=== PATIENT | female | born 1960 | race Caucasian/White ===

== ENCOUNTER → 2016-10-07 | Outpatient (REF) | payer BC ==
[~2016-10-07] MED LIST: ASPI81TA85 PO; COUM1TAB17 PO; COUM2.5T11 PO; METO25TAB PO; PERC5TAB6 PO; TRAM50TA2 PO
[2016-10-07 13:06] LABS: INR 1.56
== END ==
LOC: M LAB REF 12:51
PROVIDERS: ATTEND Orthopaedic Surgery
DX: Z51.81 Encounter for therapeutic drug level monitoring (principal); Z79.01 Long term (current) use of anticoagulants

== ENCOUNTER → 2016-10-09 | Outpatient (REF) | payer BC ==
[2016-10-09 14:34] LABS: INR 1.76
== END ==
LOC: M SHH 14:01
PROVIDERS: ATTEND Nurse Practitioner Family
DX: Z79.899 Other long term (current) drug therapy (principal)

== ENCOUNTER → 2016-10-14 | Outpatient (REF) | payer BC ==
[2016-10-14 10:59] LABS: INR 1.23
== END ==
LOC: M LAB REF 10:27
PROVIDERS: ATTEND Nurse Practitioner Family
DX: Z51.81 Encounter for therapeutic drug level monitoring (principal); Z79.01 Long term (current) use of anticoagulants

== ENCOUNTER → 2016-10-17 | Outpatient (REF) | payer BC ==
[2016-10-17 14:18] LABS: INR 1.13
== END ==
LOC: M SHH 13:34
PROVIDERS: ATTEND Nurse Practitioner Family
DX: Z51.81 Encounter for therapeutic drug level monitoring (principal); Z79.01 Long term (current) use of anticoagulants

== ENCOUNTER → 2016-10-21 | Outpatient (REF) | payer BC ==
[2016-10-21 13:13] LABS: INR 1.49
== END ==
LOC: M SHH 11:45
PROVIDERS: ATTEND Nurse Practitioner Family
DX: Z51.81 Encounter for therapeutic drug level monitoring (principal); Z79.01 Long term (current) use of anticoagulants

== ENCOUNTER → 2016-10-24 | Outpatient (REF) | payer BC ==
[2016-10-24 10:14] LABS: INR 1.48
== END ==
LOC: M LAB REF 10:00
PROVIDERS: ATTEND Nurse Practitioner Family
DX: Z51.81 Encounter for therapeutic drug level monitoring (principal); Z79.01 Long term (current) use of anticoagulants

== ENCOUNTER → 2016-10-28 | Outpatient (REF) | payer BC ==
[2016-10-28 10:50] LABS: INR 2.22
== END ==
LOC: M SHH 10:24
PROVIDERS: ATTEND Nurse Practitioner Family
DX: Z51.81 Encounter for therapeutic drug level monitoring (principal); Z79.01 Long term (current) use of anticoagulants

== ENCOUNTER → 2016-10-31 | Outpatient (REF) | payer BC ==
[2016-10-31 11:30] LABS: INR 1.69
== END ==
LOC: M SHH 11:12
PROVIDERS: ATTEND Nurse Practitioner Family
DX: Z51.81 Encounter for therapeutic drug level monitoring (principal); Z79.01 Long term (current) use of anticoagulants

== ENCOUNTER → 2017-06-05 | Outpatient (CLI) | payer BC ==
[~2017-06-05] MED LIST changes: -COUM2.5T11 PO; +COUM2.5T17 PO; +METO25TA4 PO; -METO25TAB PO; +PERC5TAB12 PO; -PERC5TAB6 PO
[2017-06-05 13:50] LABS: ALBUMIN 3.8 GM/DL (3.2-5.2); ALBUMIN/GLOBULIN RATIO 1.15 (1.00-1.93); ALKALINE PHOSPHATASE 108 U/L (45-117); ALT/SGPT 20 U/L (12-78); ANION GAP 8 MEQ/L (8-16); AST/SGOT 19 U/L (15-37); BILIRUBIN,TOTAL 0.4 MG/DL (0.2-1.0); BLOOD UREA NITROGEN 11 MG/DL (7-18); CALCIUM LEVEL 8.7 MG/DL (8.5-10.1); CARBON DIOXIDE LEVEL 25 MEQ/L (21-32); CHLORIDE LEVEL 110 MEQ/L (98-107); CHOLESTEROL LEVEL 248 MG/DL (<200); GLOMERULAR FILTRATION RATE > 60.0 (>51); GLUCOSE, FASTING 85 MG/DL (70-105); POTASSIUM SERUM 4.8 MEQ/L (3.5-5.1); SODIUM LEVEL 143 MEQ/L (136-145); TOTAL PROTEIN 7.1 GM/DL (6.4-8.2); TRIGLYCERIDES LEVEL 132 MG/DL (<150)
== END ==
LOC: M WUC 09:10
PROVIDERS: ATTEND Internal Medicine Cardiovascular Disease
DX: E78.5 Hyperlipidemia, unspecified (principal); R06.02 Shortness of breath; R91.8 Other nonspecific abnormal finding of lung field

== ENCOUNTER → 2017-06-10 | Outpatient (CLI) | payer BC ==
[~2017-06-10] MED LIST changes: +ISOVUE-370 76% 100ML VIAL (Q9967) As Ordered ONE
--- NOTE | 2017-06-10 14:42 | REP ---
CT CHEST WITH IV CONTRAST: HISTORY: Shortness of breath. Lung nodule. COMPARISON: CT study 01/10/2016. CT CONTRAST DOSE: 75 mL of intravenous Isovue-370. CT FINDINGS: Spot Worker views are unremarkable. There is no evidence of pleural or pericardial effusion. No hilar or mediastinal mass or adenopathy is observed. There is an accessory splenule in the left upper quadrant. No adrenal lesion is seen. There is a small cortical cyst in the left kidney anteriorly, 1.8 cm. The visualized upper abdominal structures are otherwise unremarkable. Heart size is prominent. The thoracic aorta enhances homogeneously without evidence of dissection. The ascending aorta measures 4.5 cm in AP dimension at the level of the main pulmonary artery. There is no evidence of pulmonary embolus. There are a few mild emphysematous bullae in the right apex. No significant pulmonary nodule is seen on either side. IMPRESSION: 1. Mildly dilated ascending aorta. 2. Small left renal cyst. 3. Mild cardiomegaly. 4. No significant pulmonary nodule seen. Signed by Crhis Benavidez MD 06/10/2017 04:34 P
== END ==
LOC: M RAD 08:17
PROVIDERS: ATTEND Internal Medicine Cardiovascular Disease
DX: I51.7 Cardiomegaly (principal); N28.1 Cyst of kidney, acquired
CPT/HCPCS: 71260; Q9967

== ENCOUNTER 2018-03-19 05:33 | Emergency (ER) | payer OTHER, BC ==
[2018-03-19] MEDS: KETOROLAC 30 MG/ML VIAL (J1885) IV (06:15)
[2018-03-19] MEDS: ONDANSETRON 4MG/2ML VIAL (J2405) IV (06:15)
[2018-03-19 06:20] LABS: BASO % 0.4 % (0.0-1.0); EOS # 0.2 10^3/uL (0.0-0.50); EOS % 2.6 % (0.0-3.0); HEMATOCRIT 42.4 % (36.0-47.0); HEMOGLOBIN 13.9 g/dl (12.0-15.5); IMMATURE GRANULOCYTE % 0.3 % (0-3.0); LYMPH # 2.3 10^3/uL (1.5-4.5); MEAN CORPUSCULAR HEMOGLOBIN 30.5 pg (27.0-33.0); MEAN CORPUSCULAR HGB CONC 32.8 g/dl (32.0-36.5); MEAN CORPUSCULAR VOLUME 93.2 fl (80.0-96.0); MONO # 0.6 10^3/uL (0.0-0.8); MONO % 8.5 % (0.0-5.0); NEUTROPHILS # 3.7 10^3/uL (1.8-7.7); NEUTROPHILS % 54.2 % (36.0-66.0); PLATELET COUNT, AUTOMATED 192 10^3/uL (150-450); RED BLOOD COUNT 4.55 10^6/uL (4.00-5.40); RED CELL DISTRIBUTION WIDTH 13.2 % (11.5-14.5); WHITE BLOOD COUNT 6.8 10^3/uL (4.0-10.0)
[2018-03-19 06:37] LABS: ANION GAP 5 MEQ/L (8-16); BLOOD UREA NITROGEN 25 MG/DL (7-18); CALCIUM LEVEL 9.2 MG/DL (8.5-10.1); CARBON DIOXIDE LEVEL 29 MEQ/L (21-32); CHLORIDE LEVEL 110 MEQ/L (98-107); GLOMERULAR FILTRATION RATE 49.1 (>51); GLUCOSE, FASTING 130 MG/DL (70-100); POTASSIUM SERUM 4.5 MEQ/L (3.5-5.1); SODIUM LEVEL 144 MEQ/L (136-145)
[2018-03-19] MEDS: MORPHINE 4 MG/ML 1ML VIAL/SYRINGE (J2270) IV ×2 (06:51→07:42)
[2018-03-19] MEDS: NS 1,000 ML IV (06:51)
[2018-03-19] MEDS ORDERED: METOCLOPRAMIDE INJ 10MG/2ML VIAL (J2765) As Ordered (07:38)
[2018-03-19] MEDS: METOCLOPRAMIDE INJ 10MG/2ML VIAL (J2765) IV (07:49)
[2018-03-19 08:35] LABS: AMORPHOUS SEDIMENT RFX LARGE (NEGATIVE); KETONE, URINE AUTO RFX TRACE mg/dL (NEGATIVE); LEUKOCYTE ESTERASE UR AUTO RFX NEGATIVE (NEGATIVE); MUCUS, URINE RFX LARGE (NEGATIVE); NITRITE, URINE AUTO RFX NEGATIVE (NEGATIVE); RBC, URINE AUTO RFX TNTC /HPF (0-3); SPECIFIC GRAVITY UR AUTO RFX 1.028 (1.002-1.035); SQUAM EPITHELIAL CELL UR AURFX 13 /HPF (0-6); WBC, URINE AUTO RFX 7 /HPF (0-3)
[2018-03-19] MEDS: PERCOCET 5MG/325MG TAB PO (08:58)
== END 2018-03-19 09:02 | disposition home or self-care (01) ==
LOC: M ED 05:33
DX: N20.1 Calculus of ureter (principal); R00.1 Bradycardia, unspecified; Z86.79 Personal history of other diseases of the circulatory system
CPT/HCPCS: J2270

== ENCOUNTER 2018-07-01 08:24 | Day surgery (SDC) | payer OTHER ==
[~2018-07-01 08:24] MED LIST changes: +ACETAMINOPHEN 325 MG TAB PO; -ASPI81TA85 PO; -COUM1TAB17 PO; -COUM2.5T17 PO; -ISOVUE-370 76% 100ML VIAL (Q9967) As Ordered ONE; -METO25TA4 PO; -PERC5TAB12 PO; +PHENYLEPHRINE HCL 10 % OPHTH. SOL 5ML OD; -TRAM50TA2 PO
[2018-07-01] MEDS: PHENYLEPHRINE 2.5% OPHTH SOL 2ML OD (09:05)
[2018-07-01] MEDS: CYCLOPENTOLATE 2% OPHTH SOLN 2ML BTL OD (09:05)
[2018-07-01] MEDS: TROPICAMIDE 1% OPHTH SOLN 2ML OD (09:06)
[2018-07-01] MEDS: OFLOXACIN 0.3 % (OCUFLOX) OPTH SOL 5ML OD (09:06)
[2018-07-01] MEDS: LIDOCAINE 3.5 % 1ML OPHTH TOPICAL GEL OU (09:06)
[2018-07-01] MEDS ORDERED: fentaNYL 100 MCG/2 ML INJECTION (J3010) As Ordered (09:30)
[2018-07-01] MEDS ORDERED: MIDAZOLAM INJ 2 MG/2 ML VIAL (J2250) As Ordered (09:30)
[2018-07-01] MEDS: POVIDONE-IODINE 5% OPHTH PREP SOL 30ML As Ordered (09:51)
[2018-07-01] MEDS: HEALON DUET (HEALON 10MG/ML 0.55ML & HEALON ENDOCOAT 30MG/ML 0.85ML) As Ordered (09:55)
[2018-07-01] MEDS: LIDOCAINE 1% SDV 5 ML VIAL As Ordered (09:55)
[2018-07-01] MEDS: TRIAMCINOLONE PRES FR 40 MG/ML 1ML(TRIESENCE)(OR EYE ONLY)(J3300 PER 1MG) As Ordered (09:55)
[2018-07-01] MEDS: MOXIFLOXACIN IN BSS 0.25MG/0.25ML INTRACAMERAL INJ (OR EYE ONLY)(J2280) As Ordered ×2 (09:56)
[2018-07-01] MEDS: LIDOCAINE 2% W/EPIN INJ 20ML **PRES FREE XX (09:56)
[2018-07-01] MEDS: BSS with VANC/TOB/EPI for EYE CASES IR (09:56)
[2018-07-01] MEDS ORDERED: TRIMETHOBENZAMIDE 300 MG CAP PO (10:15)
[2018-07-01] MEDS: AcetaZOLAMIDE 500 MG ER CAP PO (10:30)
== END 2018-07-01 10:45 | disposition home or self-care (01) ==
LOC: M SDC 08:24
DX: H25.9 Unspecified age-related cataract (principal); I71.4 Abdominal aortic aneurysm, without rupture; Z79.82 Long term (current) use of aspirin; Z79.899 Other long term (current) drug therapy; R00.1 Bradycardia, unspecified; K21.9 Gastro-esophageal reflux disease without esophagitis; J45.909 Unspecified asthma, uncomplicated; F17.210 Nicotine dependence, cigarettes, uncomplicated
CPT/HCPCS: 66984

== ENCOUNTER → 2019-02-11 | Outpatient (CLI) | payer OTHER ==
[~2019-02-11] MED LIST changes: -ACETAMINOPHEN 325 MG TAB PO; +ASPI81TA26 PO; +ASPI81TA85 PO; +COUM1TAB17 PO; +COUM2.5T17 PO; +FLOM0.4C39 PO; +IRBE150T12 PO; +ISOVUE-370 76% 100ML VIAL (Q9967) As Ordered ONE; +METO25TA4 PO; +MIRA3350 PO; +PERC5TAB12 PO; -PHENYLEPHRINE HCL 10 % OPHTH. SOL 5ML OD; +RANI150T PO; +TRAM50TA2 PO; +TYLE650T35 PO; +ZOFR4TAB14 PO
--- NOTE | 2019-02-12 04:45 | REP ---
Clinical: Thoracic aortic aneurysm. Technique: Axial contrast enhanced images from the thoracic inlet to the upper abdomen with coronal and sagittal re-formations using 100 ml Isovue 370 intravenous contrast material. Comparison: 06/10/2017, 01/10/2016, 01/04/2015 . Findings: The ascending thoracic aorta measures up to approximately 4.5 cm maximal diameter at the level of the main pulmonary artery without evidence for dissection. Minimal atherosclerotic changes to the thoracic aorta and coronary arteries identified. No cardiomegaly or pericardial effusion. The pulmonary vasculature appears relatively normal. The bilateral lung ulrich demonstrate very minimal emphysematous changes. Stable chronic subtle 4 mm noncalcified nodule in the right lower lobe (image 52) is again appreciated. No consolidation. No further mass lesion. No pleural effusion or pneumothorax. Tracheobronchial tree is patent. No axillary, hilar, or mediastinal adenopathy. Surrounding musculoskeletal structures are intact. Limited upper abdomen demonstrates normal bilateral adrenal glands. Impression: 1. Ascending thoracic aortic aneurysm measuring 4.5 cm maximal diameter and remains stable. No dissection. 2. Stable 4 mm noncalcified nodule in the right lower lobe requires no further investigation. . Electronically Signed by Massimo Pettit MD 02/12/2019 04:37 A
== END ==
LOC: M RAD 09:21
PROVIDERS: ATTEND Internal Medicine Cardiovascular Disease
DX: I71.2 Thoracic aortic aneurysm, without rupture (principal); R91.1 Solitary pulmonary nodule
CPT/HCPCS: 71260; Q9967

== ENCOUNTER → 2019-12-30 | Outpatient (CLI) | payer OTHER ==
[~2019-12-30] MED LIST changes: -IRBE150T12 PO; +IRBE150T7 PO; -ISOVUE-370 76% 100ML VIAL (Q9967) As Ordered ONE
[2019-12-30 11:48] LABS: BASO % 0.3 % (0.0-1.0); EOS # 0.1 10^3/uL (0.0-0.5); EOS % 1.6 % (0.0-3.0); HEMATOCRIT 42.2 % (36.0-47.0); HEMOGLOBIN 13.7 g/dl (12.0-15.5); LYMPH # 1.8 10^3/uL (1.5-5.0); LYMPH % 28.7 % (24.0-44.0); MEAN CORPUSCULAR HEMOGLOBIN 31.5 pg (27.0-33.0); MEAN CORPUSCULAR HGB CONC 32.5 g/dl (32.0-36.5); MONO # 0.5 10^3/uL (0.0-0.8); MONO % 7.3 % (0.0-5.0); NEUTROPHILS # 3.9 10^3/uL (1.5-8.5); NEUTROPHILS % 61.5 % (36.0-66.0); PLATELET COUNT, AUTOMATED 195 10^3/uL (150-450); RED BLOOD COUNT 4.35 10^6/uL (4.00-5.40); WHITE BLOOD COUNT 6.3 10^3/uL (4.0-10.0)
[2019-12-30 12:06] LABS: BLOOD UREA NITROGEN 17 MG/DL (7-18); CALCIUM LEVEL 9.4 MG/DL (8.5-10.1); CARBON DIOXIDE LEVEL 29 MEQ/L (21-32); CHLORIDE LEVEL 107 MEQ/L (98-107); CREATININE FOR GFR 0.77 MG/DL (0.55-1.30); GLOMERULAR FILTRATION RATE > 60.0 (>51); GLUCOSE, FASTING 91 MG/DL (70-100); SODIUM LEVEL 138 MEQ/L (136-145)
--- NOTE | 2019-12-30 12:55 | REP ---
CT ABDOMEN AND PELVIS WITHOUT CONTRAST: CT abdomen and pelvis performed without oral or IV contrast. Sagittal and coronal reconstruction images are performed. Visualized lung bases demonstrate no infiltrate. The liver, spleen, adrenals, pancreas, and right kidney are unremarkable. There is a cyst of the upper left kidney approximately 1.6 cm in diameter. There is no renal, ureteral, or bladder calculus. There is no hydroureteronephrosis. There is atherosclerotic calcification of the abdominal aorta without aneurysm. There is no adenopathy. There is no free air or free fluid. There is no bowel wall thickening. There are scattered diverticula of the left and sigmoid colon with no evidence of acute diverticulitis. The appendix is normal. No pelvic mass is seen. Left hip prosthesis causes streak artifact limiting evaluation of pelvic structures. The urinary bladder is grossly unremarkable. IMPRESSION: No evidence of appendicitis. No renal, ureteral or bladder calculus identified and no evidence of hydroureteronephrosis. There is left colonic and sigmoid diverticulosis without evidence of acute diverticulitis. No free air of free fluid. Electronically Signed by Avelino Solo MD 12/30/2019 04:55 P
== END ==
LOC: M RAD 11:09
PROVIDERS: ATTEND Family Medicine
DX: K57.30 Diverticulosis of large intestine without perforation or abscess without bleeding (principal); R10.9 Unspecified abdominal pain; R35.0 Frequency of micturition

== ENCOUNTER → 2019-12-30 | Outpatient (REF) | payer OTHER ==
[2019-12-30 17:40] LABS: APPEARANCE, URINE CLEAR (CLEAR); BACTERIA, URINE AUTO 1+ (NEGATIVE); BILIRUBIN, URINE AUTO NEGATIVE (NEGATIVE); BLOOD, URINE BLOOD NEGATIVE (NEGATIVE); COLOR, URINE YELLOW (YELLOW); GLUCOSE, URINE (UA) AUTO NEGATIVE (NEGATIVE); KETONE, URINE AUTO NEGATIVE (NEGATIVE); LEUKOCYTE ESTERASE, URINE AUTO NEGATIVE (NEGATIVE); MUCUS, URINE SMALL (NEGATIVE); NITRITE, URINE AUTO NEGATIVE (NEGATIVE); PROTEIN, URINE AUTO NEGATIVE (NEGATIVE); RBC, URINE AUTO 0 /HPF (0-3); SPECIFIC GRAVITY URINE AUTO 1.005 (1.002-1.035); SQUAMOUS EPITHELIAL CELL UR AU 3 /HPF (0-6); UROBILINOGEN, URINE AUTO 0.2 mg/dL (0.0-2.0); WBC, URINE AUTO 1 /HPF (0-3)
== END ==
LOC: M SFHCPLAZ 16:45
PROVIDERS: ATTEND Family Medicine
DX: R10.9 Unspecified abdominal pain (principal); R35.0 Frequency of micturition

== ENCOUNTER 2020-10-03 11:35 | Emergency (ER) | payer OTHER ==
[~2020-10-03] VITALS: Ht 175.3 cm; Wt 95.7 kg
[~2020-10-03 11:35] MED LIST changes: +ACET650T61 PO; -ASPI81TA85 PO; +ASPI81TA86 PO; -TYLE650T35 PO
--- NOTE | 2020-10-03 12:09 | REP ---
INDICATION: CHEST PAIN COMPARISON: 09/23/2016 TECHNIQUE: Portable AP view of the chest FINDINGS: Cardiomegaly. The lung ulrich are clear without acute consolidation, effusion, or pneumothorax. Skeletal structures are intact. IMPRESSION: Cardiomegaly. No acute cardiopulmonary process appreciated. <Electronically signed by Massimo Pettit > 10/03/20 [id number]
[2020-10-03 12:15] LABS: BASO % 0.7 % (0.0-1.0); EOS # 0.1 10^3/uL (0.0-0.5); EOS % 2.4 % (0.0-3.0); HEMATOCRIT 41.4 % (36.0-47.0); LYMPH # 1.9 10^3/uL (1.5-5.0); LYMPH % 31.3 % (24.0-44.0); MEAN CORPUSCULAR HGB CONC 31.4 g/dl (32.0-36.5); MEAN CORPUSCULAR VOLUME 95.4 fl (80.0-96.0); MONO # 0.4 10^3/uL (0.0-0.8); MONO % 7.4 % (0.0-5.0); NEUTROPHILS # 3.4 10^3/uL (1.5-8.5); NEUTROPHILS % 57.7 % (36.0-66.0); PLATELET COUNT, AUTOMATED 209 10^3/uL (150-450); RED BLOOD COUNT 4.34 10^6/uL (4.00-5.40); WHITE BLOOD COUNT 5.9 10^3/uL (4.0-10.0)
[2020-10-03] MEDS ORDERED: ISOVUE-370 76% 100ML VIAL As Ordered ONE (12:20)
[2020-10-03 12:26] LABS: INR 0.85; PROTHROMBIN TIME 11.8 SECONDS (12.5-14.3)
[2020-10-03 12:41] LABS: ALT/SGPT 20 U/L (12-78); BILIRUBIN,DIRECT < 0.1 MG/DL (0.0-0.2); BILIRUBIN,TOTAL 0.3 MG/DL (0.2-1.0); LIPASE 94 U/L (73-393); TOTAL PROTEIN 7.2 GM/DL (6.4-8.2)
--- NOTE | 2020-10-03 12:45 | REP ---
INDICATION: severe mid sternal chest pain; hx of TAA COMPARISON: 02/11/2019 TECHNIQUE: Axial contrast enhanced images from the thoracic inlet to the upper abdomen using pulmonary embolus technique with multiplanar re-formations. 75 ml Isovue 370 intravenous contrast material administered without complication. This CT examination was performed using the following dose reduction techniques: Automated exposure control, adjustment of mA and/or kv according to the patient's size, and use of iterative reconstruction technique. FINDINGS: Satisfactory enhancement of the pulmonary vasculature is achieved and no filling defects are identified to suggest pulmonary embolus. Further evaluation of the mediastinum demonstrates stable mild aneurysmal dilatation to the ascending thoracic aorta measuring roughly 4.4 cm diameter. Heart and pericardium are grossly normal. The bilateral lung ulrich are well aerated and clear without consolidation, pleural effusion or pneumothorax. Tracheobronchial tree is patent. No nodule or mass lesion is identified. No adenopathy noted. Surrounding musculoskeletal structures intact IMPRESSION: No evidence for pulmonary embolus. No acute mediastinal or pleural parenchymal process. <Electronically signed by Massimo Pettit > 10/03/20 1938
--- NOTE | 2020-10-03 13:19 | ECGEPIP ---
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
[2020-10-03 13:55] VITALS: BP 160/81
== END 2020-10-03 14:06 | disposition home or self-care (01) ==
LOC: M ED 11:35
DX: R07.89 Other chest pain (principal); R06.02 Shortness of breath; I10 Essential (primary) hypertension; E78.5 Hyperlipidemia, unspecified; Z79.899 Other long term (current) drug therapy; F17.210 Nicotine dependence, cigarettes, uncomplicated
CPT/HCPCS: 36415; 71045; 71275; 80047; 80076; 83690; 85025; 85610; 93005; 93041; 94760; 99284; Q9967

== ENCOUNTER → 2021-07-26 | Outpatient (CLI) | payer OTHER ==
[2021-07-26 07:40] LABS: ALBUMIN 3.4 GM/DL (3.2-5.2); ALT/SGPT 15 U/L (12-78); BILIRUBIN,TOTAL 0.4 MG/DL (0.2-1.0); BLOOD UREA NITROGEN 14 MG/DL (7-18); CALCIUM LEVEL 9.2 MG/DL (8.8-10.2); CARBON DIOXIDE LEVEL 30 MEQ/L (21-32); CHLORIDE LEVEL 110 MEQ/L (98-107); CHOLESTEROL LEVEL 243 MG/DL (<200); CHOLESTEROL RISK RATIO 4.673 (<5); GLOMERULAR FILTRATION RATE > 60.0 (>45); GLUCOSE, FASTING 91 MG/DL (70-100); HDL CHOLESTEROL 52 MG/DL (>40); LDL CHOLESTEROL 170 MG/DL (<100); NON-HDL-C 191 MG/DL; POTASSIUM SERUM 4.1 MEQ/L (3.5-5.1); SODIUM LEVEL 142 MEQ/L (136-145); THYROID STIMULATING HORMONE 0.787 uIU/ML (0.358-3.740); TOTAL PROTEIN 6.7 GM/DL (6.4-8.2); TRIGLYCERIDES LEVEL 107 MG/DL (<150)
[2021-07-26 13:11] LABS: TOTAL 25(OH) VITAMIN D 33.1 NG/ML (30.0-100.0)
== END ==
LOC: M LAB 06:18
PROVIDERS: ATTEND Nurse Practitioner Adult Health
DX: E55.9 Vitamin D deficiency, unspecified (principal); I71.2 Thoracic aortic aneurysm, without rupture; Z13.29 Encounter for screening for other suspected endocrine disorder; I10 Essential (primary) hypertension

== ENCOUNTER → 2021-12-27 | Outpatient (CLI) | payer OTHER | LOC: M WHC 07:09 | PROVIDERS: ATTEND Nurse Practitioner Adult Health | DX: Z12.31 Encounter for screening mammogram for malignant neoplasm of breast (principal); Z78.0 Asymptomatic menopausal state; Z85.828 Personal history of other malignant neoplasm of skin ==

== ENCOUNTER 2022-08-31 19:36 | Emergency (ER) | payer OTHER ==
[~2022-08-31] VITALS: Ht 177.8 cm; Wt 95.0 kg
[2022-08-31 20:14] LABS: BASO % 0.5 % (0.0-1.0); EOS # 0.2 10^3/uL (0.0-0.5); HEMATOCRIT 40.9 % (36.0-47.0); HEMOGLOBIN 12.9 g/dl (12.0-15.5); LYMPH # 2.6 10^3/uL (1.5-5.0); MEAN CORPUSCULAR HEMOGLOBIN 30.5 pg (27.0-33.0); MEAN CORPUSCULAR HGB CONC 31.5 g/dl (32.0-36.5); MEAN CORPUSCULAR VOLUME 96.7 fl (80.0-96.0); MONO # 0.5 10^3/uL (0.0-0.8); MONO % 6.8 % (2.0-8.0); NEUTROPHILS # 4.1 10^3/uL (1.5-8.5); NEUTROPHILS % 55.3 % (36.0-66.0); PLATELET COUNT, AUTOMATED 220 10^3/uL (150-450); RED BLOOD COUNT 4.23 10^6/uL (4.00-5.40); WHITE BLOOD COUNT 7.5 10^3/uL (4.0-10.0)
[2022-08-31] MEDS ORDERED: NS 1,000 ML IV ONE (20:25)
[2022-08-31] MEDS ORDERED: KETOROLAC 30 MG/ML 1ML VIAL IV ONE ×2 (20:25→22:15)
[2022-08-31] MEDS ORDERED: ONDANSETRON 4MG 2ML VIAL IV ONE (20:40)
[2022-08-31 20:46] LABS: ALT/SGPT 23 U/L (7.0-40); BILIRUBIN,DIRECT < 0.1 MG/DL (<0.4); BILIRUBIN,TOTAL 0.3 MG/DL (0.3-1.2); BLOOD UREA NITROGEN 15 MG/DL (9-23); CALCIUM LEVEL 9.4 MG/DL (8.3-10.6); CARBON DIOXIDE LEVEL 27 MMOL/L (20-31); CHLORIDE LEVEL 106 MMOL/L (98-107); CREATININE FOR GFR 0.82 MG/DL (0.55-1.30); GLOMERULAR FILTRATION RATE > 60.0 (>45); GLUCOSE, FASTING 114 MG/DL (74-106); LIPASE 27 U/L (12-53); POTASSIUM SERUM 4.3 MMOL/L (3.5-5.1); SODIUM LEVEL 142 MMOL/L (136-145); TOTAL PROTEIN 6.9 G/DL (5.7-8.2)
[2022-08-31] MEDS ORDERED: TAMSULOSIN 0.4 MG CAP PO ONE (21:45)
[2022-08-31] MEDS ORDERED: FLOM0.4C39 PO (23:39)
[2022-08-31] MEDS ORDERED: HYDR-3713 PO (23:39)
[2022-08-31] MEDS ORDERED: NORCO 5/325MG TABLET (HOME DOSE PACK) PO ONE (23:40)
[2022-08-31] MEDS ORDERED: MORPHINE 4 MG/ML 1ML VIAL IV ONE (23:40)
[2022-08-31 23:58] VITALS: BP 120/84
== END 2022-09-01 | disposition home or self-care (01) ==
LOC: M ED 19:36
DX: N20.1 Calculus of ureter (principal); N13.30 Unspecified hydronephrosis; K57.30 Diverticulosis of large intestine without perforation or abscess without bleeding; I10 Essential (primary) hypertension; E78.5 Hyperlipidemia, unspecified; J45.909 Unspecified asthma, uncomplicated; Z79.899 Other long term (current) drug therapy
CPT/HCPCS: 74176; 80048; 80076; 81000; 81015; 83690; 85025; 87086; 96361; 96374; 96375; 96376; 99284; J1885; J2270

== ENCOUNTER 2022-10-17 12:04 | Emergency (ER) | payer OTHER ==
[~2022-10-17] VITALS: Ht 177.8 cm; Wt 95.4 kg
[~2022-10-17 12:04] MED LIST changes: +HYDR-3713 PO
[2022-10-17] MEDS ORDERED: PARO5TAB (12:17)
[2022-10-17 12:50] LABS: BASO % 0.5 % (0.0-1.0); EOS # 0.1 10^3/uL (0.0-0.5); EOS % 1.5 % (0.0-3.0); HEMATOCRIT 42.2 % (36.0-47.0); HEMOGLOBIN 13.5 g/dl (12.0-15.5); LYMPH # 1.9 10^3/uL (1.5-5.0); LYMPH % 28.7 % (24.0-44.0); MEAN CORPUSCULAR HEMOGLOBIN 30.9 pg (27.0-33.0); MEAN CORPUSCULAR VOLUME 96.6 fl (80.0-96.0); MONO # 0.5 10^3/uL (0.0-0.8); MONO % 7.1 % (2.0-8.0); NEUTROPHILS # 4.1 10^3/uL (1.5-8.5); NEUTROPHILS % 61.6 % (36.0-66.0); PLATELET COUNT, AUTOMATED 220 10^3/uL (150-450); RED BLOOD COUNT 4.37 10^6/uL (4.00-5.40); WHITE BLOOD COUNT 6.7 10^3/uL (4.0-10.0)
[2022-10-17 13:08] LABS: CK-MB VALUE MASS < 1.0 NG/ML (<3.6)
[2022-10-17 13:10] LABS: ALKALINE PHOSPHATASE 103 U/L (46-116); ALT/SGPT 16 U/L (7.0-40); AST/SGOT 13 U/L (<34); BILIRUBIN,DIRECT 0.1 MG/DL (<0.4); BILIRUBIN,TOTAL 0.3 MG/DL (0.3-1.2); BLOOD UREA NITROGEN 17 MG/DL (9-23); CALCIUM LEVEL 9.2 MG/DL (8.3-10.6); CARBON DIOXIDE LEVEL 27 MMOL/L (20-31); CHLORIDE LEVEL 106 MMOL/L (98-107); CREATININE FOR GFR 0.69 MG/DL (0.55-1.30); GLOMERULAR FILTRATION RATE > 60.0 (>45); GLUCOSE, FASTING 88 MG/DL (74-106); SODIUM LEVEL 141 MMOL/L (136-145); TOTAL PROTEIN 6.8 G/DL (5.7-8.2)
[2022-10-17 13:16] LABS: CPK CREATINE PHOSPHOKINASE 86 U/L (34-145); MB/CK RELATIVE INDEX 1.16 (< OR =4)
[2022-10-17] MEDS ORDERED: KETOROLAC 30 MG/ML 1ML VIAL IV ONE (13:25)
[2022-10-17] MEDS ORDERED: ISOVUE-370 76% 100ML VIAL As Ordered ONE (13:32)
[2022-10-17 13:46] VITALS: BP 129/60
[2022-10-17 14:24] LABS: CK-MB VALUE MASS < 1.0 NG/ML (<3.6)
[2022-10-17 14:25] LABS: CPK CREATINE PHOSPHOKINASE 87 U/L (34-145); MB/CK RELATIVE INDEX 1.14 (< OR =4)
[2022-10-17] MEDS ORDERED: LIDO1ADH16 TP (15:06)
[2022-10-17] MEDS ORDERED: KETO10TAB PO (15:06)
== END 2022-10-17 15:24 | disposition home or self-care (01) ==
LOC: M ED 12:04
DX: R07.89 Other chest pain (principal); I51.7 Cardiomegaly; I10 Essential (primary) hypertension; E78.5 Hyperlipidemia, unspecified; Z98.61 Coronary angioplasty status; F17.200 Nicotine dependence, unspecified, uncomplicated

== ENCOUNTER → 2022-11-08 | Outpatient (CLI) | payer OTHER ==
[~2022-11-08] MED LIST changes: +KETO10TAB PO; +LIDO1ADH16 TP; +PARO5TAB
[2022-11-08 13:57] LABS: ALBUMIN 3.7 G/DL (3.2-5.2); ALKALINE PHOSPHATASE 115 U/L (46-116); ALT/SGPT 12 U/L (7.0-40); AST/SGOT 14 U/L (<34); BILIRUBIN,TOTAL 0.3 MG/DL (0.3-1.2); BLOOD UREA NITROGEN 17 MG/DL (9-23); CALCIUM LEVEL 9.4 MG/DL (8.3-10.6); CARBON DIOXIDE LEVEL 29 MMOL/L (20-31); CHLORIDE LEVEL 109 MMOL/L (98-107); CHOLESTEROL LEVEL 242 MG/DL (<200); GLOMERULAR FILTRATION RATE > 60.0 (>45); GLUCOSE, FASTING 91 MG/DL (74-106); HDL CHOLESTEROL 52.5 MG/DL (>40); LDL CHOLESTEROL 163.7 MG/DL (<100); NON-HDL-C 190 MG/DL; SODIUM LEVEL 144 MMOL/L (136-145); TOTAL PROTEIN 6.5 G/DL (5.7-8.2); TRIGLYCERIDES LEVEL 129 MG/DL (<150)
[2022-11-08 13:59] LABS: TOTAL 25(OH) VITAMIN D 31.2 NG/ML (20.0-100.0)
== END ==
LOC: M PLALAB 09:48
PROVIDERS: ATTEND Nurse Practitioner Adult Health
DX: Z13.29 Encounter for screening for other suspected endocrine disorder (principal); Z13.220 Encounter for screening for lipoid disorders; I10 Essential (primary) hypertension; E55.9 Vitamin D deficiency, unspecified

== ENCOUNTER → 2022-11-08 | Outpatient (CLI) | payer OTHER | LOC: M WHC 08:53 | PROVIDERS: ATTEND Nurse Practitioner Adult Health | DX: K76.9 Liver disease, unspecified (principal) ==

== ENCOUNTER → 2023-01-09 | Outpatient (CLI) | payer OTHER | LOC: M WHC 10:12 | PROVIDERS: ATTEND Nurse Practitioner Adult Health | DX: Z12.31 Encounter for screening mammogram for malignant neoplasm of breast (principal) ==

== ENCOUNTER → 2023-11-12 | Outpatient (REF) | payer OTHER ==
[~2023-11-12] MED LIST changes: +IRBE150T27 PO; -IRBE150T7 PO
== END ==
LOC: M SFHCPLAZ 16:59
PROVIDERS: ATTEND Nurse Practitioner Adult Health
DX: R68.89 Other general symptoms and signs (principal)

== ENCOUNTER → 2023-12-12 | Outpatient (CLI) | payer OTHER ==
[2023-12-12 07:48] LABS: ALBUMIN 3.6 G/DL (3.2-5.2); ALKALINE PHOSPHATASE 111 U/L (46-116); ALT/SGPT 21 U/L (7.0-40); AST/SGOT 9 U/L (<34); BILIRUBIN,TOTAL 0.4 MG/DL (0.3-1.2); BLOOD UREA NITROGEN 17 MG/DL (9-23); CALCIUM LEVEL 9.2 MG/DL (8.3-10.6); CARBON DIOXIDE LEVEL 30 MMOL/L (20-31); CHLORIDE LEVEL 108 MMOL/L (98-107); CHOLESTEROL LEVEL 203 MG/DL (<200); CHOLESTEROL RISK RATIO 4.15 (<5); CREATININE FOR GFR 0.73 MG/DL (0.55-1.30); GLOMERULAR FILTRATION RATE > 60.0 (>45); GLUCOSE, FASTING 91 MG/DL (74-106); HDL CHOLESTEROL 48.9 MG/DL (>40); LDL CHOLESTEROL 131.7 MG/DL (<100); NON-HDL-C 154.1 MG/DL; POTASSIUM SERUM 4.6 MMOL/L (3.5-5.1); SODIUM LEVEL 140 MMOL/L (136-145); TOTAL PROTEIN 6.4 G/DL (5.7-8.2); TRIGLYCERIDES LEVEL 112 MG/DL (<150)
[2023-12-12 07:51] LABS: THYROID STIMULATING HORMONE 0.884 uIU/ML (0.55-4.78); TOTAL 25(OH) VITAMIN D 17.6 NG/ML (20.0-100.0)
== END ==
LOC: M LAB 06:13
PROVIDERS: ATTEND Nurse Practitioner Adult Health
DX: I10 Essential (primary) hypertension (principal); E55.9 Vitamin D deficiency, unspecified; Z13.220 Encounter for screening for lipoid disorders; Z13.29 Encounter for screening for other suspected endocrine disorder

== ENCOUNTER → 2024-01-15 | Outpatient (CLI) | payer OTHER | LOC: M WHC 09:57 | PROVIDERS: ATTEND Nurse Practitioner Adult Health | DX: Z12.31 Encounter for screening mammogram for malignant neoplasm of breast (principal) ==

== ENCOUNTER 2024-11-02 08:17 | Emergency (ER) | payer OTHER ==
[~2024-11-02] VITALS: Ht 177.8 cm; Wt 93.9 kg
[2024-11-02] MEDS: dexAMETHasone 20MG/5ML VIAL IV ONE (09:34)
[2024-11-02 09:54] LABS: BASO % 0.6 % (0.0-1.0); EOS # 0.1 10^3/uL (0.0-0.5); EOS % 2.2 % (0.0-3.0); HEMATOCRIT 42.6 % (36.0-47.0); HEMOGLOBIN 14.2 g/dl (12.0-15.5); LYMPH # 1.4 10^3/uL (1.5-5.0); LYMPH % 24.8 % (24.0-44.0); MEAN CORPUSCULAR HEMOGLOBIN 31.8 pg (27.0-33.0); MEAN CORPUSCULAR HGB CONC 33.3 g/dl (32.0-36.5); MEAN CORPUSCULAR VOLUME 95.5 fl (80.0-96.0); MONO # 0.6 10^3/uL (0.0-0.8); MONO % 11.8 % (2.0-8.0); NEUTROPHILS # 3.3 10^3/uL (1.5-8.5); NEUTROPHILS % 60.2 % (36.0-66.0); PLATELET COUNT, AUTOMATED 171 10^3/uL (150-450); RED BLOOD COUNT 4.46 10^6/uL (4.00-5.40); WHITE BLOOD COUNT 5.4 10^3/uL (4.0-10.0)
[2024-11-02 10:28] LABS: BLOOD UREA NITROGEN 13 MG/DL (9-23); CARBON DIOXIDE LEVEL 29 MMOL/L (20-31); CHLORIDE LEVEL 108 MMOL/L (98-107); CREATININE FOR GFR 0.64 MG/DL (0.55-1.30); GLOMERULAR FILTRATION RATE > 60.0 (>45); GLUCOSE, FASTING 93 MG/DL (74-106); POTASSIUM SERUM 4.9 MMOL/L (3.5-5.1); SODIUM LEVEL 143 MMOL/L (136-145)
[2024-11-02 11:55] VITALS: O2SAT 95
[2024-11-02] MEDS: IPRATROPIUM 0.5MG/ALBUTEROL 2.5MG INH SOL UD 3ML (DUONEB) NEB ONE (12:01)
[2024-11-02 12:10] VITALS: BP 119/59; TEMP 98.6; O2SAT 93
== END 2024-11-02 12:23 | disposition home or self-care (01) ==
LOC: M ED 08:17
DX: J09.X2 Influenza due to identified novel influenza A virus with other respiratory manifestations (principal); I10 Essential (primary) hypertension; J45.909 Unspecified asthma, uncomplicated; K21.9 Gastro-esophageal reflux disease without esophagitis; F17.210 Nicotine dependence, cigarettes, uncomplicated; Z79.1 Long term (current) use of non-steroidal anti-inflammatories (NSAID); Z79.2 Long term (current) use of antibiotics; Z79.899 Other long term (current) drug therapy
CPT/HCPCS: 71045; 80048; 85025; 87486; 87581; 87633; 87798; 93005; 94640; 96374; 99284; J1100

== ENCOUNTER → 2025-02-01 | Outpatient (CLI) | payer OTHER ==
[~2025-02-01] MED LIST changes: -FLOM0.4C39 PO; +TAMS-18 PO
== END ==
LOC: M WHC 07:45
PROVIDERS: ATTEND Nurse Practitioner Adult Health
DX: Z12.31 Encounter for screening mammogram for malignant neoplasm of breast (principal)

== ENCOUNTER → 2025-02-01 | Outpatient (CLI) | payer OTHER ==
[2025-02-01 10:58] LABS: ALBUMIN 3.9 G/DL (3.2-5.2); ALKALINE PHOSPHATASE 109 U/L (35-104); ALT/SGPT 24 U/L (7.0-40); AST/SGOT 12 U/L (<34); BILIRUBIN,TOTAL 0.3 MG/DL (0.3-1.2); BLOOD UREA NITROGEN 17 MG/DL (9-23); CALCIUM LEVEL 9.2 MG/DL (8.3-10.6); CARBON DIOXIDE LEVEL 29 MMOL/L (20-31); CHLORIDE LEVEL 108 MMOL/L (98-107); CHOLESTEROL LEVEL 214 MG/DL (<200); CHOLESTEROL RISK RATIO 3.85 (<5); CREATININE FOR GFR 0.69 MG/DL (0.55-1.30); GLOMERULAR FILTRATION RATE > 90.0 (>45); GLUCOSE, FASTING 91 MG/DL (74-106); HDL CHOLESTEROL 55.5 MG/DL (>40); LDL CHOLESTEROL 136.9 MG/DL (<100); NON-HDL-C 158.5 MG/DL; POTASSIUM SERUM 4.4 MMOL/L (3.5-5.1); SODIUM LEVEL 144 MMOL/L (136-145); TOTAL PROTEIN 6.8 G/DL (5.7-8.2); TRIGLYCERIDES LEVEL 108 MG/DL (<150)
== END ==
LOC: M PLALAB 07:48
PROVIDERS: ATTEND Nurse Practitioner Adult Health
DX: E78.2 Mixed hyperlipidemia (principal)

== ENCOUNTER → 2025-04-06 | Outpatient (REF) | payer MEDICARE | LOC: M LAB REF 14:23 | PROVIDERS: ATTEND Student in an Organized Health Care Education/Training Program | DX: R30.0 Dysuria (principal) ==